=== PATIENT | male | born 1990 | race Caucasian/White ===

== ENCOUNTER → 2021-07-22 15:54 | Outpatient (CLI) | payer OTHER, SELFPAY ==
--- NOTE | ~2021-07-22 | XR_ITS ---
[[id number] ] INDICATION: Left rib pain TECHNIQUE: Frontal projection of the upper left ribs, frontal projection of the lower left ribs, obli que projection of all the left ribs, frontal inspiratory chest x-ray for interpretation. FINDINGS: There are no displaced rib fractures identified. There are no soft tissue abnormality see n. The lungs are clear. IMPRESSION: 1:No displaced rib fractures. Reviewed, dictated and finalized at location A. [employer]
== END ==
PROVIDERS: PCP Nurse Practitioner; Visit Provider Nurse Practitioner
DX: R07.81 Pleurodynia (principal)
CPT/HCPCS: 71101

== ENCOUNTER → 2023-01-12 09:27 | Outpatient (CLI) | payer OTHER, SELFPAY ==
--- NOTE | ~2023-01-12 | US_ITS ---
Limited Abdominal Sonogram: Real-time sonographic imaging of the left upper quadrant was performed. Clinical History: Chronic left upper quadrant pain Findings: Left kidney measures 9.2 cm in length. No hydronephrosis or stone evident. No renal mass se en. Spleen is unremarkable. No free fluid evident in the left upper quadrant. No other abnormality se en in left upper quadrant at the area of focal pain.. Impression: No significant abnormality seen. Reviewed, dictated and finalized at location . Impression: No significant abnormality seen.
== END ==
PROVIDERS: PCP Nurse Practitioner; Visit Provider Nurse Practitioner
DX: R07.81 Pleurodynia (principal)
CPT/HCPCS: 76705